=== PATIENT | male | born 1995 | race Caucasian/White ===

== ENCOUNTER 2017-02-24 12:42 | Emergency (ER) | payer MEDICAID ==
[2017-02-24 15:23] VITALS: BP 128/66
--- NOTE | 2017-02-24 15:48 | UC ---
Abdominal Pain Male HPI - HPI Summary HPI Summary: pt reports sudden onset of acute nausea and vomiting last night. Pt reports last episode of vomiting 1- 2 hours ago. Pt reports he is unable to "keep anything down" would like a work note to not work tonight - History of Current Complaint Chief Complaint: UCGeneralIllness Stated Complaint: VOMITING Time Seen by Provider: 02/24/17 15:40 Hx Obtained From: Patient Onset/Duration: Sudden Onset, Lasting Hours Timing: Constant Severity Initially: Mild Severity Currently: None Location: Diffuse Radiates: No Character: Colicy, Dull Aggravating Factor(s):: Food Alleviating Factor(s): Rest Associated Signs And Symptoms: Positive: Nausea, Vomiting - Allergies/Home Medications Allergies/Adverse Reactions: Allergies Allergy/AdvReac Type Severity Reaction Status Date / Time No Known Allergies Allergy Verified 02/24/17 15:23 PMH/Surg Hx/FS Hx/Imm Hx Previously Healthy: Yes - Surgical History Surgical History: None - Family History Known Family History: Positive: Other - positive Health system for nausea - Social History Lives: With Family Alcohol Use: None Substance Use Type: None Smoking Status (MU): Never Smoked Tobacco Review of Systems Constitutional: Chills Skin: Negative Eyes: Negative ENT: Negative Respiratory: Negative Cardiovascular: Negative Gastrointestinal: Abdominal Pain, Vomiting Genitourinary: Negative Motor: Negative Neurovascular: Negative Musculoskeletal: Negative Neurological: Negative Psychological: Negative All Other Systems Reviewed And Are Negative: Yes Physical Exam Triage Information Reviewed: Yes Appearance: Well-Appearing Vital Signs: Initial Vital Signs Temp 98.9 F 02/24/17 15:20 Pulse 77 02/24/17 15:20 Resp 16 02/24/17 15:20 BP 128/66 02/24/17 15:20 Pulse Ox 98 02/24/17 15:20 Eye Exam: Normal ENT Exam: Normal Neck exam: Normal Respiratory Exam: Normal Cardiovascular Exam: Normal Abdominal Exam: Normal Musculoskeletal Exam: Normal Neurological Exam: Normal Psychological Exam: Normal Skin Exam: Normal Abd Pain Male Course/Dx - Differential Dx/Clinical Impression Differential Diagnosis/HQI/PQRI: Other - gastroenteritis Provider Diagnoses: acute nausea and vomiting Discharge - Discharge Plan Condition: Stable Disposition: HOME Patient Education Materials: Acute Nausea and Vomiting (ED) Forms: *Work Release Referrals: [facility] [Outside] No Primary Care Phys,NOPCP [Primary Care Provider] - Additional Instructions: Please follow up with your PCP or return to clinic as needed.
== END 2017-02-24 15:58 | disposition home or self-care (01) ==
LOC: UCCORT 12:42
DX: R11.2 Nausea with vomiting, unspecified (principal)
CPT/HCPCS: 99211; G0463

== ENCOUNTER 2017-05-22 14:32 | Emergency (ER) | payer OTHER ==
--- NOTE | 2017-05-22 14:45 | UC ---
Abdominal Pain Male HPI - HPI Summary HPI Summary: 22 YEAR OLD MALE PRESENTS WITH NAUSEA/VOMITING. - History of Current Complaint Stated Complaint: VOMITING Time Seen by Provider: 05/22/17 14:44 - Allergies/Home Medications Allergies/Adverse Reactions: Allergies Allergy/AdvReac Type Severity Reaction Status Date / Time No Known Allergies Allergy Verified 05/22/17 14:50 PMH/Surg Hx/FS Hx/Imm Hx - Surgical History Surgical History: None - Family History Known Family History: Positive: Other - positive [facility] for nausea - Social History Alcohol Use: None Substance Use Type: None Smoking Status (MU): Never Smoked Tobacco Review of Systems Constitutional: Negative Skin: Negative Eyes: Negative ENT: Negative Respiratory: Negative Cardiovascular: Negative Gastrointestinal: Abdominal Pain, Vomiting, Diarrhea, Nausea Genitourinary: Negative Motor: Negative Neurovascular: Negative Musculoskeletal: Negative Neurological: Negative Psychological: Negative All Other Systems Reviewed And Are Negative: Yes Physical Exam Triage Information Reviewed: Yes Eye Exam: Normal ENT Exam: Normal Dental Exam: Normal Neck exam: Normal Neck: Positive: 1 Respiratory Exam: Normal Cardiovascular Exam: Normal Abdominal Exam: Normal Abdomen Description: Positive: Nontender, Soft Musculoskeletal Exam: Normal Neurological Exam: Normal Psychological Exam: Normal Skin Exam: Normal Abd Pain Male Course/Dx - Differential Dx/Clinical Impression Provider Diagnoses: VOMITTING. NAUSEA Discharge - Discharge Plan Condition: Stable Disposition: HOME Prescriptions: Dicyclomine CAP* [Bentyl CAP*] 10 mg PO ACHS PRN #30 cap PRN Reason: Pain - Abdominal Patient Education Materials: Acute Nausea and Vomiting (ED) Forms: *Work Release Referrals: No Primary Care Phys,NOPCP [Primary Care Provider] -
[2017-05-22 14:50] VITALS: BP 117/55
== END 2017-05-22 15:05 | disposition home or self-care (01) ==
LOC: UCCORT 14:32
DX: R11.2 Nausea with vomiting, unspecified (principal)
CPT/HCPCS: 99212; G0463

== ENCOUNTER 2017-07-31 15:40 | Emergency (ER) | payer OTHER ==
--- NOTE | 2017-07-31 16:04 | UC ---
Abdominal Pain Male HPI - HPI Summary HPI Summary: 22 YEAR OLD MALE PRESENTS WITH COMPLAINS NAUSEA, VOMITING, AND DIARRHEA. - History of Current Complaint Stated Complaint: UPSET STOMACH,VOMITING/DIARRHEA Time Seen by Provider: 07/31/17 16:04 Hx Obtained From: Patient Onset/Duration: Sudden Onset Severity Initially: Moderate Severity Currently: Moderate Location: Diffuse - Allergies/Home Medications Allergies/Adverse Reactions: Allergies Allergy/AdvReac Type Severity Reaction Status Date / Time No Known Allergies Allergy Verified 07/31/17 16:12 Home Medications: Home Medications Buprenorphine/Naloxone SL TAB* [Suboxone 8-2 mg SL TAB*] 2 tab.sl SL DAILY 07/31 [History Confirmed 07/31/17] PMH/Surg Hx/FS Hx/Imm Hx Previously Healthy: Yes - Surgical History Surgical History: None - Family History Known Family History: Positive: Other - positive FM for nausea - Social History Alcohol Use: None Substance Use Type: None Smoking Status (MU): Never Smoked Tobacco Review of Systems Constitutional: Negative Skin: Negative Eyes: Negative ENT: Negative Respiratory: Negative Cardiovascular: Negative Gastrointestinal: Abdominal Pain, Vomiting, Diarrhea, Nausea Genitourinary: Negative Motor: Negative Neurovascular: Negative Musculoskeletal: Negative Neurological: Negative Psychological: Negative All Other Systems Reviewed And Are Negative: Yes Physical Exam Triage Information Reviewed: Yes Vital Signs Reviewed: Yes Eye Exam: Normal ENT Exam: Normal Dental Exam: Normal Neck exam: Normal Neck: Positive: 1 Respiratory Exam: Normal Cardiovascular Exam: Normal Abdominal Exam: Normal Musculoskeletal Exam: Normal Neurological Exam: Normal Psychological Exam: Normal Skin Exam: Normal Abd Pain Male Course/Dx - Differential Dx/Clinical Impression Provider Diagnoses: NAUSEA. VOMITTING. DIARRHEA Discharge - Discharge Plan Condition: Stable Disposition: HOME Prescriptions: Dicyclomine CAP* [Bentyl CAP*] 10 mg PO ACHS PRN #30 cap PRN Reason: Discomfort Loperamide HCl [Imodium A-D] 2 mg PO SEE INSTRUCTIONS #1 bottle Ondansetron ODT TAB* [Zofran 4 MG Odt TAB*] 4 mg PO Q8H PRN #9 tab.odt PRN Reason: Nausea Patient Education Materials: Gastroenteritis (ED) Forms: *School Release Referrals: No Primary Care Phys,NOPCP [Primary Care Provider] -
[2017-07-31 16:12] VITALS: BP 116/54
== END 2017-07-31 16:35 | disposition home or self-care (01) ==
LOC: UCCORT 15:40
DX: R11.2 Nausea with vomiting, unspecified (principal); R19.7 Diarrhea, unspecified
CPT/HCPCS: 99212; G0463

== ENCOUNTER 2017-10-01 18:50 | Emergency (ER) | payer OTHER ==
[2017-10-01 19:24] VITALS: BP 126/82
--- NOTE | 2017-10-01 19:35 | UC ---
Abdominal Pain Male HPI - HPI Summary HPI Summary: abdominal pain x 1 day + nausea and vomiting after eating out no fever, no chills , no diarrhea , no urinary sx - History of Current Complaint Chief Complaint: UCAbdominalPain Stated Complaint: UPSET STOMACH Time Seen by Provider: 10/01/17 19:22 Hx Obtained From: Patient Onset/Duration: Gradual Onset, Lasting Days - 1, Still Present Timing: Constant Severity Initially: Moderate Severity Currently: Mild Location: Diffuse Character: Cramping Aggravating Factor(s): Food Alleviating Factor(s): Rest Associated Signs And Symptoms: Positive: Decreased Appetite, Vomiting. 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 Smoking Status (MU): Never Smoked Tobacco - Immunization History Most Recent Influenza Vaccination: no 2016 Review of Systems Constitutional: Negative Skin: Negative Eyes: Negative ENT: Negative Respiratory: Negative Gastrointestinal: Vomiting Genitourinary: Negative Is Patient Immunocompromised?: No All Other Systems Reviewed And Are Negative: Yes Physical Exam Triage Information Reviewed: Yes Appearance: Well-Appearing, No Pain Distress, Well-Nourished Vital Signs: Initial Vital Signs Temp 98 F 10/01/17 19:20 Pulse 86 10/01/17 19:20 Resp 16 10/01/17 19:20 BP 126/82 10/01/17 19:20 Pulse Ox 98 10/01/17 19:20 Vital Signs Reviewed: Yes Eyes: Positive: Conjunctiva Clear ENT: Positive: Normal ENT inspection, Hearing grossly normal, Pharynx normal Neck: Positive: Supple, Nontender, No Lymphadenopathy Respiratory: Positive: Chest non-tender, Lungs clear, Normal breath sounds, No respiratory distress Cardiovascular: Positive: RRR, No Murmur, Pulses Normal Abdominal Exam: Normal Abdomen Description: Positive: Nontender, Soft. Negative: CVA Tenderness (R), CVA Tenderness (L), Distended, Guarding Bowel Sounds: Positive: Present Skin Exam: Normal Abd Pain Male Course/Dx - Differential Dx/Clinical Impression Provider Diagnoses: gastritis Discharge - Discharge Plan Condition: Stable Disposition: HOME Patient Education Materials: Gastritis (ED) Forms: *School Release Referrals: No Primary Care Phys,NOPCP [Primary Care Provider] - If Needed
== END 2017-10-01 19:34 | disposition home or self-care (01) ==
LOC: UCCORT 18:50
DX: K29.70 Gastritis, unspecified, without bleeding (principal)
CPT/HCPCS: 99211; G0463

== ENCOUNTER 2017-10-11 11:38 | Emergency (ER) | payer OTHER ==
[2017-10-11 13:39] VITALS: BP 121/70
--- NOTE | 2017-10-11 13:58 | UC ---
Abdominal Pain Male HPI - HPI Summary HPI Summary: ABDOMINAL PAIN X 2 DAYS + NAUSEA AND VOMITING NO FEVER, + CHILLS + SORE THROAT, NO NASAL CONGESTION , NO COUGH NO DIARRHEA - History of Current Complaint Chief Complaint: UCGeneralIllness Stated Complaint: FEVER VOMITING TIRED Time Seen by Provider: 10/11/17 13:31 Hx Obtained From: Patient Onset/Duration: Gradual Onset, Lasting Days - 2, Still Present Timing: Constant Severity Initially: Moderate Severity Currently: Moderate Location: Diffuse Radiates: Yes Character: Colicy, Cramping Aggravating Factor(s): Food Alleviating Factor(s): Nothing Associated Signs And Symptoms: Positive: Nausea, Vomiting. Negative: Diaphoresis, Fever, Cough, Chest Pain, Dizzy, Back Pain, Constipation, Blood in Stool, Urinary Symptoms, Decreased Appetite, Diarrhea, Penile Discharge - Allergies/Home Medications Allergies/Adverse Reactions: Allergies Allergy/AdvReac Type Severity Reaction Status Date / Time No Known Allergies Allergy Verified 10/11/17 13:34 PMH/Surg Hx/FS Hx/Imm Hx Previously Healthy: Yes - Surgical History Surgical History: None - Family History Known Family History: Positive: Other - positive [facility] for nausea - Social History Alcohol Use: None Substance Use Type: None Smoking Status (MU): Never Smoked Tobacco - Immunization History Most Recent Influenza Vaccination: no 2017 Review of Systems Constitutional: Chills, Fatigue Skin: Negative Eyes: Negative ENT: Negative Respiratory: Negative Is Patient Immunocompromised?: No All Other Systems Reviewed And Are Negative: Yes Physical Exam Triage Information Reviewed: Yes Appearance: Well-Appearing, No Pain Distress, Well-Nourished Vital Signs: Initial Vital Signs Temp 100.4 F 10/11/17 13:34 Pulse 85 10/11/17 13:34 Resp 16 10/11/17 13:34 BP 121/70 10/11/17 13:34 Pulse Ox 97 10/11/17 13:34 Vital Signs Reviewed: Yes Eyes: Positive: Conjunctiva Clear ENT: Positive: Normal ENT inspection, Hearing grossly normal, Pharynx normal Neck: Positive: Supple, Nontender, No Lymphadenopathy Respiratory: Positive: Chest non-tender, Lungs clear, Normal breath sounds Cardiovascular: Positive: RRR, No Murmur, Pulses Normal Abdomen Description: Positive: Soft, Other:. Negative: Distended, Guarding Bowel Sounds: Positive: Present Musculoskeletal Exam: Normal Skin Exam: Normal Abd Pain Male Course/Dx - Differential Dx/Clinical Impression Provider Diagnoses: GASTRITIS Discharge - Discharge Plan Condition: Stable Disposition: HOME Prescriptions: Ondansetron [Zofran 8 MG Odt] 8 mg PO Q8H #9 tab Patient Education Materials: Gastritis (ED) Forms: *School Release Referrals: No Primary Care Phys,NOPCP [Primary Care Provider] - 7 Days
== END 2017-10-11 13:58 | disposition home or self-care (01) ==
LOC: UCCORT 11:38
DX: K29.70 Gastritis, unspecified, without bleeding (principal)
CPT/HCPCS: 99212; G0463

== ENCOUNTER 2017-11-18 19:52 | Emergency (ER) | payer OTHER ==
[2017-11-18 20:39] VITALS: BP 124/71
[2017-11-18] MEDS ORDERED: SUMAtriptan SQ* 6 MG/0.5 ML VIAL SUBCUT ONE (20:48)
[2017-11-18] MEDS ORDERED: Ondansetron INJ* 2 MG/ML VIAL IM ONE (20:48)
--- NOTE | 2017-11-18 21:14 | UC ---
Abdominal Pain Male HPI - HPI Summary HPI Summary: C/O nausea with vomiting today after starting with headache yesterday. Bilateral earache. Positive photophobia. No diarrhea. - History of Current Complaint Stated Complaint: NAUSEA/FLU LIKE SYMPTOMS Time Seen by Provider: 11/18/17 20:35 Hx Obtained From: Patient Onset/Duration: Sudden Onset, Lasting Days - 2, Worse Since - today - Allergies/Home Medications Allergies/Adverse Reactions: Allergies Allergy/AdvReac Type Severity Reaction Status Date / Time No Known Allergies Allergy Verified 10/11/17 13:34 Home Medications: Home Medications Condoms Latex Lubricated - Mal [Durex Extra Sensitive] 1 cap PO SEE INSTRUCTIONS PRN 11/18/17 [History Confirmed 11/18/17] PMH/Surg Hx/FS Hx/Imm Hx Neurological History: Migraine Other Psychological History: Opiod abuse - Surgical History Surgical History: None - Family History Known Family History: Positive: Other - positive FMh for nausea Negative: Cardiac Disease - Social History Occupation: Unemployed Lives: Alone Alcohol Use: None Substance Use Type: None, Prescribed Substance Use Comment - Amount & Last Used: SUBOXIN Smoking Status (MU): Never Smoked Tobacco - Immunization History Most Recent Influenza Vaccination: no 2017 Review of Systems Constitutional: Fatigue Eyes: Photophobia Gastrointestinal: Vomiting, Nausea Neurological: Headache - pounding headache Is Patient Immunocompromised?: No All Other Systems Reviewed And Are Negative: Yes Physical Exam Triage Information Reviewed: Yes Appearance: Well-Nourished, Ill-Appearing, Pain Distress Vital Signs: Initial Vital Signs Temp 97.8 F 11/18/17 20:31 Pulse 86 11/18/17 20:31 Resp 16 11/18/17 20:31 BP 124/71 11/18/17 20:31 Pulse Ox 98 11/18/17 20:31 Vital Signs Reviewed: Yes Eyes: Positive: Conjunctiva Inflamed ENT: Positive: Pharynx normal - MM a little tacky, but saliva present., TMs normal Neck exam: Normal Respiratory Exam: Normal Cardiovascular Exam: Normal Abdomen Description: Positive: Nontender, No Organomegaly, Soft Bowel Sounds: Positive: Present Musculoskeletal Exam: Normal Neurological Exam: Normal Psychological Exam: Normal Skin Exam: Normal Re-Evaluation - Re-Evaluation First Eval Re-Evaluation Time: 21:31 Change: Improved - feeling much better. Headache and nausea are better. Abd Pain Male Course/Dx - Differential Dx/Clinical Impression Differential Diagnosis/HQI/PQRI: Diverticulitis, Hepatitis, Other - gastroenteritis Provider Diagnoses: Migraine headache Discharge - Discharge Plan Condition: Stable Disposition: HOME Prescriptions: Ondansetron ODT TAB* [Zofran 4 MG Odt TAB*] 4 mg PO Q6H PRN #14 tab.odt PRN Reason: Nausea/Vomiting SUMAtriptan TAB* [Imitrex TAB*] 100 mg PO DAILY PRN #9 tab PRN Reason: Migraine Headache Patient Education Materials: Migraine Headache (ED), Sumatriptan (By mouth), Ondansetron (By mouth) Referrals: No Primary Care Phys,NOPCP [Primary Care Provider] -
== END 2017-11-18 21:46 | disposition home or self-care (01) ==
LOC: UCCORT 19:52
DX: G43.909 Migraine, unspecified, not intractable, without status migrainosus (principal); F11.10 Opioid abuse, uncomplicated
CPT/HCPCS: 96372; 99212; G0463; J2405; J3030

== ENCOUNTER 2018-01-21 19:51 | Emergency (ER) | payer OTHER ==
[2018-01-21 20:35] VITALS: BP 136/70
[2018-01-21] MEDS ORDERED: Ondansetron ODT TAB* 4 MG PO ONE (20:51)
--- NOTE | 2018-01-21 20:58 | UC ---
Nausea/Vomiting/Diarrhea HPI - HPI Summary HPI Summary: pt is c/o nausea with vomiting since this am. he states "I stopped trying to eat " which has helped. he has been taking some cranberry gingerale without vomiting. he denies any abdominal pain or diarrhea. remote hx opiate abuse. denies current use. states needs a note for work. - History of Current Complaint Hx Obtained From: Patient Onset/Duration: Gradual Onset Pain Intensity: 4 Aggravating Factor(s): Food Alleviating Factor(s): Nothing Nausea/Vomiting Presence: Nauseated, Vomiting Nausea/Vomiting Duration: 0-12 hours Diarrhea Presence: No - Risk Factors Influenza Risk Factors: Negative <Dora Maher - Last Filed: 01/21/18 20:53> <Eileen Vidal - Last Filed: 01/21/18 21:37> - History of Current Complaint Chief Complaint: UCGI Stated Complaint: VOMITING Time Seen by Provider: 01/21/18 20:36 - Allergies/Home Medications Allergies/Adverse Reactions: Allergies Allergy/AdvReac Type Severity Reaction Status Date / Time No Known Allergies Allergy Verified 01/21/18 20:35 PMH/Surg Hx/FS Hx/Imm Hx - Additional Past Medical History Additional PMH: remote hx opiate abuse, non current - Surgical History Surgical History: None - Family History Known Family History: Positive: Other - positive FMh for nausea Negative: Cardiac Disease - Social History Occupation: Employed Full-time Alcohol Use: None Substance Use Type: None, Prescribed Substance Use Comment - Amount & Last Used: SUBOXIN Smoking Status (MU): Never Smoked Tobacco - Immunization History Most Recent Influenza Vaccination: no 2016 <Dora Maher - Last Filed: 01/21/18 20:53> Review of Systems Constitutional: Negative Skin: Negative Eyes: Negative ENT: Negative Respiratory: Negative Cardiovascular: Negative Gastrointestinal: Vomiting, Nausea Genitourinary: Negative Motor: Negative Neurovascular: Negative Musculoskeletal: Negative Neurological: Negative Psychological: Negative Is Patient Immunocompromised?: No All Other Systems Reviewed And Are Negative: Yes <Dora Maher - Last Filed: 01/21/18 20:53> Physical Exam Triage Information Reviewed: Yes Appearance: Well-Appearing Vital Signs: Initial Vital Signs Temp 99.4 F 01/21/18 20:31 Pulse 74 01/21/18 20:31 Resp 14 01/21/18 20:31 BP 136/70 01/21/18 20:31 Pulse Ox 97 01/21/18 20:31 Vital Signs Reviewed: Yes Eyes: Positive: Conjunctiva Clear ENT: Positive: Pharynx normal, TMs normal. Negative: Nasal congestion, Nasal drainage Neck: Positive: Supple, Nontender, No Lymphadenopathy Respiratory: Positive: Lungs clear, Normal breath sounds Cardiovascular: Positive: RRR, No Murmur Abdomen Description: Positive: Nontender, No Organomegaly, Soft Bowel Sounds: Positive: Present Musculoskeletal: Positive: ROM Intact Neurological: Positive: Alert Psychological: Positive: Age Appropriate Behavior Skin Exam: Normal <Dora Maher - Last Filed: 01/21/18 20:53> Vital Signs: Initial Vital Signs Temp 99.4 F 01/21/18 20:31 Pulse 74 01/21/18 20:31 Resp 14 01/21/18 20:31 BP 136/70 01/21/18 20:31 Pulse Ox 97 01/21/18 20:31 <Eileen Vidal - Last Filed: 01/21/18 21:37> Naus/Vom/Diarrhea Course/Dx - Course Course Of Treatment: non toxic, no acute abdomen. taking some po fluids with no v/d. pt request f/u Dr Bowers thus referal given <Dora Maher - Last Filed: 01/21/18 20:53> <Eileen Vidal - Last Filed: 01/21/18 21:37> - Differential Dx/Diagnosis Condition At Discharge: Stable Discharge - Sign-Out/Discharge Documenting (check all that apply): Discharge - Billing Disposition and Condition Condition: STABLE Disposition: HOME <Dora Maher - Last Filed: 01/21/18 20:53> - Billing Disposition and Condition Condition: STABLE Disposition: HOME <Eileen Vidal - Last Filed: 01/21/18 21:37> - Discharge Plan Condition: Stable Disposition: HOME Patient Education Materials: Acute Nausea and Vomiting (ED) Forms: *Work Release Referrals: Tiffany Bowers MD [Medical Doctor] - 5 Days Attestation Statement User Type: Provider - I was available for consult. This patient was seen by the advanced practice provider. The patient was not presented to, seen by, or examined by me.-Natanaelj <Eileen Vidal - Last Filed: 01/21/18 21:37>
== END 2018-01-21 21:42 | disposition home or self-care (01) ==
LOC: UCCORT 19:51
DX: R11.2 Nausea with vomiting, unspecified (principal); R19.7 Diarrhea, unspecified
CPT/HCPCS: 99212; A9270-GY; G0463